=== PATIENT | male | born 1975 | race African-American/Black ===

== ENCOUNTER 2021-03-27 20:48 | Emergency (ER) | payer OTHER, SELFPAY ==
[2021-03-27] MEDS ORDERED: Lidocaine 1% w/Epinephrine 1:100K 20 ML VIAL ONE (22:13)
== END 2021-03-27 23:26 | disposition home or self-care (01) ==
LOC: ERS 20:48
DX: S01.01XA Laceration without foreign body of scalp, initial encounter (principal); V59.9XXA Occupant (driver) (passenger) of pick-up truck or van injured in unspecified traffic accident, initial encounter
CPT/HCPCS: 70450; 72125; G0390